=== PATIENT | female | born 1985 | race Two or more races ===

== ENCOUNTER 2016-09-16 11:03 | Inpatient (IN) | payer MEDICAID ==
[~2016-09-16] VITALS: Ht 160 cm; Wt 75.6 kg
[~2016-09-16 11:03] MED LIST: CEPH-37 PO; IBUP800T24 PO; TRAM50TA2 PO
[2016-09-16] MEDS ORDERED: FLEET ENEMA(ADULT) 135 ML PR ONE (12:00)
[2016-09-16] MEDS ORDERED: LACTULOSE 20Gm/30ML SOLN PO ONE (12:00)
[2016-09-16] MEDS ORDERED: VANCOMYCIN 1GM/250ML D5W 250 ML IV ONE (13:15)
[2016-09-16] MEDS ORDERED: ONDANSETRON HCL 4 MG/2 ML VIAL IV ONE (13:15)
[2016-09-16] MEDS ORDERED: SODIUM CHLORIDE 0.9% 1,000 ML IV ONE (13:15)
[2016-09-16] MEDS ORDERED: MORPHINE SULF INJ 2 MG/ML SYRINGE 1ML IV ONE (13:15)
[2016-09-16 13:37] LABS: Basophils # (auto) 0 uL; Basophils % (auto) 0.4 % (0.0-2.0); DEFINITIVE VIEW TRANSMISSION; Eosinophils # (auto) 0.1 uL; Eosinophils % (auto) 1.2 % (0.0-7.0); Hematocrit 31.4 % (36.0-46.0); Lymphocytes # (auto) 2.5 uL; Mean Corpuscular Hemoglobin 23.4 pg (28.0-32.0); Mean Corpuscular Hgb Conc. 31.8 g/dL (32.0-36.0); Mean Corpuscular Volume 73.5 fL (80.0-100.0); Mean Platelet Volume 7.5 fL (7.4-10.4); Monocytes # (auto) 0.7 uL; Monocytes % (auto) 6.9 % (0.0-12.0); Neutrophils # (auto) 7.4 uL; Neutrophils % (auto) 68.5 % (37.0-80.0); Platelet Count (auto) 348 10^3/uL (140-450); Red Cell Distribution Width 16.8 % (11.6-16.0); White Blood Cell 10.8 10^3/uL (4.4-10.8)
[2016-09-16] MEDS ORDERED: TEMAZEPAM 15 MG CAP PO PRN (13:45)
[2016-09-16] MEDS ORDERED: LORazepam 0.5 MG TAB PO PRN (13:45)
[2016-09-16] MEDS ORDERED: cefTRIAXone 1GM/50ML D5W 50 ML IV ONE (13:45)
[2016-09-16] MEDS ORDERED: HYDROcodone-ACET 5/325MG TAB PO PRN (13:45)
[2016-09-16] MEDS ORDERED: MILK OF MAGNESIA 30ML SUSP PO PRN (13:45)
[2016-09-16] MEDS: metroNIDAZOLE 500MG/100ML 100 ML IV SCH ×2 (13:47→21:39)
[2016-09-16] MEDS ORDERED: FAMOTIDINE 20 MG TAB PO ONE (14:00)
[2016-09-16 14:10] LABS: Albumin 3.9 g/dL (3.4-5.0); BUN/Creatinine Ratio 7.5; Bilirubin, Total 0.4 mg/dL (0.2-1.0); Calcium 9.1 mg/dL (8.5-10.1); Potassium 3.5 mmol/L (3.5-5.1); Total Protein 8.1 g/dL (6.4-8.2)
[2016-09-16] MEDS: SODIUM CHLORIDE 0.9% 1,000 ML IV SCH ×2 (15:20→21:41)
[2016-09-16] MEDS ORDERED: MAGN400T5 PO (16:03)
[2016-09-16] MEDS ORDERED: DOCU-99 PO (16:03)
[2016-09-16 17:00] VITALS: BP 97/65
[2016-09-16 17:24] VITALS: BP 97/65
[2016-09-16] MEDS ORDERED: metroNIDAZOLE 500MG/100ML 100 ML IV SCH (18:00)
[2016-09-16 18:12] LABS: Hemoglobin 8.9 g/dL (12.2-16.2)
[2016-09-16] MEDS: PROCHLORPERAZINE EDISYLATE 5 MG/ML 2ML VIAL IV PRN (18:33)
[2016-09-16] MEDS: FAMOTIDINE 20 MG TAB PO SCH (21:40)
[2016-09-16 22:00] VITALS: BP 93/47
[2016-09-17 00:50] LABS: Hematocrit 29.1 % (36.0-46.0); Hemoglobin 9.1 g/dL (12.2-16.2)
[2016-09-17 05:00] VITALS: BP 102/66
[2016-09-17] MEDS: metroNIDAZOLE 500MG/100ML 100 ML IV SCH ×3 (06:08→21:55)
[2016-09-17 07:20] LABS: Hematocrit 28.5 % (36.0-46.0)
[2016-09-17 09:00] VITALS: BP 99/49
[2016-09-17] MEDS: FAMOTIDINE 20 MG TAB PO SCH ×2 (09:32→21:55)
[2016-09-17] MEDS: cefTRIAXone 1GM/50ML D5W 50 ML IV SCH (09:32)
[2016-09-17] MEDS: SODIUM CHLORIDE 0.9% 1,000 ML IV SCH ×2 (09:33→21:04)
[2016-09-17] MEDS: ACETAMINOPHEN 500 MG TAB PO PRN (09:38)
[2016-09-17] MEDS: PROCHLORPERAZINE EDISYLATE 5 MG/ML 2ML VIAL IV PRN (11:41)
[2016-09-17] MEDS ORDERED: KETOROLAC TROMETH 30 MG/ML 1ML VIAL IV PRN (12:00)
[2016-09-17] MEDS ORDERED: LACTULOSE 20Gm/30ML SOLN PO SCH (12:00)
[2016-09-17 13:00] VITALS: BP 97/53
[2016-09-17 17:00] VITALS: BP 123/63
[2016-09-17] MEDS: LACTULOSE 20Gm/30ML SOLN PO SCH ×2 (19:33→23:43)
[2016-09-17] MEDS: KETOROLAC TROMETH 30 MG/ML 1ML VIAL IV PRN (19:34)
[2016-09-17] MEDS: DOCUSATE SOD 100 MG CAP PO SCH (21:55)
[2016-09-17 22:00] VITALS: BP 108/59
[2016-09-17] MEDS ORDERED: DOCUSATE SOD 100 MG CAP PO SCH (22:00)
[2016-09-18] MEDS: KETOROLAC TROMETH 30 MG/ML 1ML VIAL IV PRN ×4 (02:33→21:30)
[2016-09-18] MEDS: SODIUM CHLORIDE 0.9% 1,000 ML IV SCH ×2 (05:43→13:59)
[2016-09-18 05:48] VITALS: BP 99/54
[2016-09-18] MEDS: metroNIDAZOLE 500MG/100ML 100 ML IV SCH ×3 (06:08→21:29)
[2016-09-18] MEDS: LACTULOSE 20Gm/30ML SOLN PO SCH (06:08)
[2016-09-18 07:01] LABS: Urine Bilirubin Negative (Negative); Urine Blood Negative /uL (Negative); Urine Color Yellow (Yellow); Urine Glucose Normal (Normal); Urine Ketone TRACE (Negative); Urine Mucus FEW (None Seen); Urine Nitrite Negative (Negative); Urine RBC 1 /hpf (0 - 4); Urine Squamous Epithelial Cell FEW /hpf (<5); Urine Urobilinogen Normal (Negative); Urine pH 6.5 (5.0-8.0)
[2016-09-18 07:26] LABS: Potassium 3.4 mmol/L (3.5-5.1)
[2016-09-18 07:35] LABS: Basophils # (auto) 0 uL; Basophils % (auto) 0.9 % (0.0-2.0); DEFINITIVE VIEW TRANSMISSION; Eosinophils # (auto) 0.1 uL; Eosinophils % (auto) 1.8 % (0.0-7.0); Hematocrit 30.9 % (36.0-46.0); Hemoglobin 9.9 g/dL (12.2-16.2); Lymphocytes # (auto) 2.2 uL; Lymphocytes % (auto) 43.7 % (10.0-50.0); Mean Corpuscular Hemoglobin 23.5 pg (28.0-32.0); Mean Corpuscular Volume 73.5 fL (80.0-100.0); Mean Platelet Volume 8.1 fL (7.4-10.4); Monocytes # (auto) 0.5 uL; Monocytes % (auto) 10.5 % (0.0-12.0); Neutrophils # (auto) 2.2 uL; Neutrophils % (auto) 43.1 % (37.0-80.0); Platelet Count (auto) 335 10^3/uL (140-450); Red Cell Distribution Width 17.1 % (11.6-16.0); White Blood Cell 5.1 10^3/uL (4.4-10.8)
[2016-09-18 07:38] LABS: BUN/Creatinine Ratio 7.7; Calcium 8.3 mg/dL (8.5-10.1)
[2016-09-18 08:15] VITALS: BP 99/54
[2016-09-18 08:44] VITALS: BP 108/65
[2016-09-18] MEDS: cefTRIAXone 1GM/50ML D5W 50 ML IV SCH (09:31)
[2016-09-18] MEDS: FAMOTIDINE 20 MG TAB PO SCH ×2 (09:31→21:30)
[2016-09-18] MEDS: DOCUSATE SOD 100 MG CAP PO SCH (09:31)
[2016-09-18] MEDS ORDERED: POTASSIUM CHL 20 Meq TABLET PO ONE (11:15)
[2016-09-18] MEDS: ACETAMINOPHEN 500 MG TAB PO PRN (11:31)
[2016-09-18 13:00] VITALS: BP 128/79
[2016-09-18 17:00] VITALS: BP 106/70
[2016-09-18 22:00] VITALS: BP 105/57
[2016-09-19] MEDS: SODIUM CHLORIDE 0.9% 1,000 ML IV SCH (00:32)
[2016-09-19 05:33] VITALS: BP 102/47
[2016-09-19] MEDS: metroNIDAZOLE 500MG/100ML 100 ML IV SCH (06:00)
[2016-09-19] MEDS: KETOROLAC TROMETH 30 MG/ML 1ML VIAL IV PRN (06:08)
[2016-09-19 08:00] VITALS: BP 118/73
[2016-09-19 08:59] VITALS: BP 118/73
[2016-09-19] MEDS: FAMOTIDINE 20 MG TAB PO SCH (09:08)
[2016-09-19] MEDS: cefTRIAXone 1GM/50ML D5W 50 ML IV SCH (09:08)
[2016-09-19 10:55] VITALS: BP 118/73
== END 2016-09-19 12:03 | disposition home or self-care (01) | DRG 244 ==
LOC: ER 11:03 → OVERFLOW 11:04 → CENTRAL 15:03
PROVIDERS: ADMIT Internal Medicine; ATTEND Internal Medicine
DX: K57.32 Diverticulitis of large intestine without perforation or abscess without bleeding (principal); K92.2 Gastrointestinal hemorrhage, unspecified; K59.00 Constipation, unspecified; D64.9 Anemia, unspecified; Z90.49 Acquired absence of other specified parts of digestive tract; Z88.6 Allergy status to analgesic agent
CPT/HCPCS: 36415; 74176; 80048; 80053; 81001; 84702; 85014; 85018; 85025; 85045; 86850; 86900; 86901; 87040; 96365; 96367; 96375; 99291; J0696; J1885; J2405; J3490

== ENCOUNTER 2016-12-05 10:48 | Emergency (ER) | payer MEDICAID ==
[~2016-12-05] VITALS: Ht 160 cm; Wt 68.0 kg
[~2016-12-05 10:48] MED LIST changes: +DOCU-99 PO; +MAGN400T5 PO
[2016-12-05 11:36] LABS: Basophils # (auto) 0 uL; Basophils % (auto) 0.5 % (0.0-2.0); CONDITION Y; DEFINITIVE SEE PRINTOUT; Eosinophils # (auto) 0.1 uL; Eosinophils % (auto) 2.2 % (0.0-7.0); Hematocrit 32.8 % (36.0-46.0); Hemoglobin 10.6 g/dL (12.2-16.2); Lymphocytes # (auto) 2.3 uL; Lymphocytes % (auto) 34.9 % (10.0-50.0); Mean Corpuscular Hemoglobin 24.1 pg (28.0-32.0); Mean Corpuscular Hgb Conc. 32.3 g/dL (32.0-36.0); Mean Corpuscular Volume 74.6 fL (80.0-100.0); Monocytes # (auto) 0.6 uL; Monocytes % (auto) 9.1 % (0.0-12.0); Neutrophils # (auto) 3.6 uL; Neutrophils % (auto) 53.3 % (37.0-80.0); Platelet Count (auto) 308 10^3/uL (140-450); White Blood Cell 6.7 10^3/uL (4.4-10.8)
[2016-12-05 11:48] LABS: Red Cell Distribution Width 20.6 % (11.6-16.0)
[2016-12-05 11:49] LABS: Hypochromia Moderate; Platelet Estimate Adequate
[2016-12-05 11:50] LABS: Anisocytosis Slight
[2016-12-05 11:53] LABS: Albumin 3.8 g/dL (3.4-5.0); Bilirubin, Total 0.4 mg/dL (0.2-1.0); Calcium 8.7 mg/dL (8.5-10.1); Potassium 3.6 mmol/L (3.5-5.1); Total Protein 7.8 g/dL (6.4-8.2)
[2016-12-05 12:30] VITALS: BP 116/72
[2016-12-05 12:37] LABS: Urine Bilirubin Negative (Negative); Urine Color Yellow (Yellow); Urine Glucose Normal (Normal); Urine Ketone Negative (Negative); Urine Mucus FEW (None Seen); Urine Nitrite Negative (Negative); Urine RBC 14 /hpf (0 - 4); Urine Squamous Epithelial Cell FEW /hpf (<5); Urine Urobilinogen Normal (Negative); Urine pH 5.5 (5.0-8.0)
[2016-12-05 12:40] LABS: Urine Blood 1+ /uL (Negative)
== END 2016-12-05 13:17 | disposition home or self-care (01) ==
LOC: ER 10:48
DX: O20.0 Threatened abortion (principal); O23.41 Unspecified infection of urinary tract in pregnancy, first trimester; Z3A.01 Less than 8 weeks gestation of pregnancy; Z88.6 Allergy status to analgesic agent
CPT/HCPCS: 36415; 76801; 80053; 81001; 84702; 85025

== ENCOUNTER 2017-06-09 19:40 | Observation (INO) | payer MEDICAID ==
[2017-06-09 22:50] LABS: Urine Bacteria NONE SEEN /hpf (None Seen); Urine Blood TRACE /uL (Negative); Urine Mucus FEW (None Seen); Urine Specific Gravity 1.017 (1.001-1.035); Urine WBC 3 /hpf (0 - 5)
[2017-06-09] MEDS ORDERED: PREN-96 PO (22:55)
[2017-06-09 22:56] LABS: Alcohol, Urine < 3.0 mg/dL (0-5); Amphetamine Screen, Urine NEGATIVE (NEGATIVE); Barbiturate Scree,Urine NEGATIVE (NEGATIVE); Benzodiazephine Screen, Urine NEGATIVE (NEGATIVE); Cannabinoid Screen, Urine NEGATIVE (NEGATIVE); Cocaine Screen, Urine NEGATIVE (NEGATIVE); Opiate Scree,Urine NEGATIVE (NEGATIVE); Phencyclidine Screen, Urine NEGATIVE (NEGATIVE)
== END 2017-06-09 23:22 | disposition home or self-care (01) | DRG 566 ==
LOC: LDRP 19:40
PROVIDERS: ADMIT Obstetrics & Gynecology; ATTEND Obstetrics & Gynecology
DX: O46.93 Antepartum hemorrhage, unspecified, third trimester (principal); O62.9 Abnormality of forces of labor, unspecified; Z3A.34 34 weeks gestation of pregnancy
CPT/HCPCS: 59025; 76805; 76817; 76818; 80307; 81001; 81002; G0378

== ENCOUNTER 2017-06-11 09:50 | Observation (INO) | payer MEDICAID ==
[~2017-06-11 09:50] MED LIST changes: -MAGN400T5 PO; +PREN-96 PO
[2017-06-11] MEDS ORDERED: NIF10C PO (10:30)
== END 2017-06-11 10:20 | disposition home or self-care (01) | DRG 566 ==
LOC: LDRP 09:50
PROVIDERS: ADMIT Obstetrics & Gynecology; ATTEND Obstetrics & Gynecology
DX: O34.93 Maternal care for abnormality of pelvic organ, unspecified, third trimester (principal); Z3A.34 34 weeks gestation of pregnancy
CPT/HCPCS: 59025; 81002; G0378

== ENCOUNTER 2017-06-18 08:05 | Observation (INO) | payer MEDICAID ==
[~2017-06-18 08:05] MED LIST changes: -DOCU-99 PO; +NIF10C PO
== END 2017-06-18 08:55 | disposition home or self-care (01) | DRG 563 ==
LOC: LDRP 08:05
PROVIDERS: ADMIT Obstetrics & Gynecology; ATTEND Obstetrics & Gynecology
DX: O60.03 Preterm labor without delivery, third trimester (principal); O46.93 Antepartum hemorrhage, unspecified, third trimester; Z3A.35 35 weeks gestation of pregnancy
CPT/HCPCS: 59025; 81002; G0378

== ENCOUNTER 2017-06-25 08:00 | Observation (INO) | payer MEDICAID ==
[2017-06-25 08:46] LABS: Basophils # (auto) 0 uL; Basophils % (auto) 0.5 % (0.0-2.0); Eosinophils # (auto) 0.2 uL; Eosinophils % (auto) 2.5 % (0.0-7.0); Hematocrit 37.2 % (36.0-46.0); Hemoglobin 12.7 g/dL (12.2-16.2); Lymphocytes # (auto) 1.9 uL; Lymphocytes % (auto) 23.2 % (10.0-50.0); Mean Corpuscular Hemoglobin 31.7 pg (28.0-32.0); Mean Corpuscular Hgb Conc. 34.1 g/dL (32.0-36.0); Mean Corpuscular Volume 93.1 fL (80.0-100.0); Monocytes % (auto) 12.4 % (0.0-12.0); Neutrophils % (auto) 61.4 % (37.0-80.0); Nucleated Red Blood Cells % 0.1 %; Platelet Count (auto) 170 10^3/uL (140-450); Red Blood Cells 3.99 10^6/uL (4.0-5.20); Red Cell Distribution Width 14.1 % (11.8-14.3); White Blood Cell 8.2 10^3/uL (4.4-10.8)
[2017-06-25 09:01] LABS: Urine Bacteria NONE SEEN /hpf (None Seen); Urine Blood TRACE /uL (Negative); Urine Mucus FEW (None Seen); Urine Specific Gravity 1.015 (1.001-1.035); Urine WBC 11 /hpf (0 - 5)
[2017-06-26 03:07] LABS: RPR Non Reactive (Non Reactive)
== END 2017-06-25 09:00 | disposition home or self-care (01) | DRG 563 ==
LOC: LDRP 08:00
PROVIDERS: ADMIT Obstetrics & Gynecology; ATTEND Obstetrics & Gynecology
DX: O60.03 Preterm labor without delivery, third trimester (principal); O46.93 Antepartum hemorrhage, unspecified, third trimester; Z3A.36 36 weeks gestation of pregnancy
CPT/HCPCS: 36415; 59025; 81001; 81002; 85025; 86592; G0378

== ENCOUNTER 2017-07-09 16:40 | Observation (INO) | payer MEDICAID | END 2017-07-09 17:35 | disposition home or self-care (01) | DRG 566 | LOC: LDRP 16:40 | PROVIDERS: ADMIT Obstetrics & Gynecology; ATTEND Obstetrics & Gynecology | DX: O26.893 Other specified pregnancy related conditions, third trimester (principal); M54.9 Dorsalgia, unspecified; O46.93 Antepartum hemorrhage, unspecified, third trimester; Z3A.38 38 weeks gestation of pregnancy | CPT/HCPCS: 59025; 81002; G0378 ==

== ENCOUNTER 2017-07-18 06:05 | Inpatient (IN) | payer MEDICAID ==
[~2017-07-18] VITALS: Ht 157.5 cm; Wt 88.9 kg
[~2017-07-18 06:05] MED LIST changes: -CEPH-37 PO; -NIF10C PO
[2017-07-18] MEDS ORDERED: DERMOPLAST 60ML BOTTLE TOP PRN (06:30)
[2017-07-18] MEDS ORDERED: WITCH HAZEL-GLYCERIN PAD TOP PRN (06:30)
[2017-07-18] MEDS ORDERED: METHYLERGONOVINE MALEATE 0.2 MG/ML AMP IM PRN (06:30)
[2017-07-18] MEDS ORDERED: NALBUPHINE HCL 10 MG/1ml INJECTION IV PRN (06:30)
[2017-07-18] MEDS ORDERED: LIDOCAINE 2%HCL (LOCAL ANESTH.) INJ 20ML MDV IJ ONE (06:30)
[2017-07-18] MEDS ORDERED: CARBOPROST TROMETHAMINE 250 MCG/1ML VIAL IM PRN (06:30)
[2017-07-18] MEDS ORDERED: PHISODERM TOP SOLN 240ML BTL TOP PRN (06:30)
[2017-07-18] MEDS ORDERED: LACT. RINGERS/OXYTOCIN 20UNITS 1,000 ML IV SCH (06:30)
[2017-07-18] MEDS ORDERED: LACTATED RINGER'S 1,000 ML IV SCH (06:30)
[2017-07-18 07:41] LABS: Basophils # (auto) 0 uL; Basophils % (auto) 0.4 % (0.0-2.0); Eosinophils # (auto) 0.1 uL; Eosinophils % (auto) 1.6 % (0.0-7.0); Hematocrit 36.1 % (36.0-46.0); Hemoglobin 12.6 g/dL (12.2-16.2); Lymphocytes # (auto) 1.5 uL; Lymphocytes % (auto) 21.3 % (10.0-50.0); Mean Corpuscular Hemoglobin 32.5 pg (28.0-32.0); Mean Corpuscular Hgb Conc. 34.9 g/dL (32.0-36.0); Mean Corpuscular Volume 93.3 fL (80.0-100.0); Monocytes # (auto) 0.8 uL; Neutrophils # (auto) 4.7 uL; Neutrophils % (auto) 65.7 % (37.0-80.0); Platelet Count (auto) 130 10^3/uL (140-450); Red Blood Cells 3.86 10^6/uL (4.0-5.20); Red Cell Distribution Width 14.4 % (11.8-14.3); White Blood Cell 7.2 10^3/uL (4.4-10.8)
[2017-07-18 07:55] LABS: INR 0.91 (0.9-1.15); Partial Thromboplastin Time 28.3 sec (22.64-33.71); Prothrombin Time 9.9 sec (9.37-12.3)
[2017-07-18 07:58] LABS: Albumin 2.8 g/dL (3.4-5.0); Calcium 8.1 mg/dL (8.5-10.1); Potassium 3.6 mmol/L (3.5-5.1)
[2017-07-18 08:01] LABS: Bilirubin, Total 0.4 mg/dL (0.2-1.0); Total Protein 6.6 g/dL (6.4-8.2)
[2017-07-18 08:11] LABS: Urine Bacteria FEW /hpf (None Seen); Urine Blood 2+ /uL (Negative); Urine Mucus FEW (None Seen); Urine Specific Gravity 1.032 (1.001-1.035); Urine WBC 9 /hpf (0 - 5)
[2017-07-18] MEDS ORDERED: fentaNYL CITRATE 100 MCG/2 ML VL IV ONE (08:30)
[2017-07-18] MEDS ORDERED: LIDOCAINE HCL 2 %PF INJ 10ML AMP IJ ONE (08:30)
[2017-07-18] MEDS ORDERED: fentaNYL W ROPIVACAINE 150 ML EPI SCH ×2 (08:30→09:45)
[2017-07-18] MEDS ORDERED: ePHEDrine SULFATE 50 MG/ML AMP IV ONE ×2 (08:30→09:45)
[2017-07-18] MEDS ORDERED: NALOXONE HCL 0.4 MG/ML VIAL IV ONE ×2 (08:30→09:45)
[2017-07-18] MEDS ORDERED: SODIUM CHLORIDE 0.9% 500 ML IV PRN (09:37)
[2017-07-18] MEDS ORDERED: CARBOPROST TROMETHAMINE 250 MCG/1ML VIAL IM ONE (12:15)
[2017-07-18] MEDS ORDERED: ONDANSETRON HCL 4 MG/2 ML VIAL IV PRN (12:15)
[2017-07-18] MEDS ORDERED: DIPHENOXYLATE W/ATROPINE 2.5 MG TAB PO PRN ×2 (12:15→12:30)
[2017-07-18] MEDS ORDERED: LACT. RINGERS/OXYTOCIN 20UNITS 500 ML IV ONE (12:15)
[2017-07-18] MEDS ORDERED: ONDANSETRON HCL 4 MG/2 ML VIAL ONE (12:24)
[2017-07-18 16:00] VITALS: BP 103/57
[2017-07-18 19:00] VITALS: BP 100/59
[2017-07-18] MEDS: ACETAMINOPHEN 325 MG TAB PO PRN (20:39)
[2017-07-18 23:00] VITALS: BP 98/53
[2017-07-19] MEDS: ACETAMINOPHEN 325 MG TAB PO PRN ×2 (00:40→07:26)
[2017-07-19 03:00] VITALS: BP 116/68
[2017-07-19 07:30] VITALS: BP 130/60
[2017-07-19 11:30] VITALS: BP 120/50
[2017-07-19 12:50] VITALS: BP 120/80
== END 2017-07-19 12:50 | disposition home or self-care (01) | DRG 560 ==
LOC: OBSVTOIN 06:05 → LDRP 06:05
PROVIDERS: ADMIT Obstetrics & Gynecology; ATTEND Obstetrics & Gynecology
PROC: 10E0XZZ Delivery of Products of Conception, External Approach (ICD-10-PCS; principal; 2017-07-18)
PROC: 3E0R3BZ Introduction of Anesthetic Agent into Spinal Canal, Percutaneous Approach (ICD-10-PCS; 2017-07-18)
PROC: 00HU33Z Insertion of Infusion Device into Spinal Canal, Percutaneous Approach (ICD-10-PCS; 2017-07-18)
DX: O80 Encounter for full-term uncomplicated delivery (principal); Z37.0 Single live birth; Z3A.39 39 weeks gestation of pregnancy
CPT/HCPCS: 36415; 59025; 59409; 62282; 80053; 81001; 81002; 85025; 85610; 85730; 86850; 86900; 86901; 96365; 96366; 96372; 96374; J2405; J2590; J3010